=== PATIENT | male | born 1990 | race Caucasian/White ===

== ENCOUNTER 2017-04-30 12:44 | Emergency (ER) | payer BC, OTHER ==
[2017-04-30] MEDS ORDERED: MAG HYDROX/AL HYDROX/SIMETH 355 ML ORAL.SUSP PO ONE (13:00)
[2017-04-30] MEDS ORDERED: SODIUM CHLORIDE 2,000 ML IV STA (13:00)
[2017-04-30] MEDS ORDERED: LOPERAMIDE HCL 2 MG CAPSULE PO ONE (13:00)
[2017-04-30] MEDS ORDERED: FAMOTIDINE 20 MG/50 ML IVPB 50 ML IVPB ONE ×2 (13:00→13:09)
[2017-04-30] MEDS ORDERED: KETOROLAC TROMETHAMINE 30 MG/1 ML VIAL IVPUSH ONE (13:00)
[2017-04-30] MEDS ORDERED: ONDANSETRON 4 MG/2 ML VIAL IVPB ONE (13:00)
[2017-04-30 13:06] VITALS: BP 116/72; PULSE 79; TEMP 99.8; BMI 27.4
--- NOTE | 2017-04-30 13:07 | PDOC ---
History of Present Illness - General Chief Complaint: Nausea/Vomiting Stated Complaint: UPSET STOMACH Time Seen by Provider: 04/30/17 12:49 History Source: Patient Exam Limitations: No Limitations - History of Present Illness Initial Comments: 04/30/17 13:10 26 year old male with PMH of asthma presents with diarrhea x 4 days. The patient is unsure of any sick contacts. No recent travelling or bad foods. Started to develop several episodes of diarrhea daily. Reports some abdominal cramping but no vomiting. States had vomited once today. Reports chills but denies fevers. Came into the ED. Pt states that he was already recently treated with chlamydia. The patient states he has no symptoms but thinks may potentially not be completely treated. He is requesting a GC/CT and HIV test. Denies dysuria. Past History - Past Medical History Allergies/Adverse Reactions: Allergies Allergy/AdvReac Type Severity Reaction Status Date / Time No Known Allergies Allergy Verified 12/15/14 14:23 Home Medications: Ambulatory Orders No Home Medications 0 dose .ROUTE UTDICT 03/02/13 Ondansetron HCl [Zofran] 4 mg PO Q8H PRN #15 tablet 04/30/17 - Immunization History Immunization Up to Date: Yes - Suicide/Smoking/Psychosocial Hx Smoking Status: Yes Smoking History: Current some day smoker Number of Cigarettes Smoked Daily: 0 'Breaking Loose' booklet given: 12/15/14 Hx Alcohol Use: Yes Substance Use Type: None Review of Systems - Review of Systems Able to Perform ROS?: Yes Comments:: 04/30/17 13:15 GENERAL/CONSTITUTIONAL: No fever, weakness. HEAD, EYES, EARS, NOSE AND THROAT: No change in vision. No ear pain or discharge. No sore throat. CARDIOVASCULAR: No chest pain or shortness of breath. RESPIRATORY: No cough, wheezing, or hemoptysis. GASTROINTESTINAL: No abdominal pain. + nausea, vomiting, diarrhea, decreased PO intolerance. GENITOURINARY: No dysuria, frequency, or change in urination. MUSCULOSKELETAL: No joint or muscle swelling or pain. No neck or back pain. SKIN: No rash NEUROLOGIC: No headache, vertigo, loss of consciousness, or change in strength/ sensation. ENDOCRINE: No increased thirst. No abnormal weight change. HEMATOLOGIC/LYMPHATIC: No anemia, easy bleeding, or history of blood clots. ALLERGIC/IMMUNOLOGIC: No hives or skin allergy. *Physical Exam - Physical Exam Comments: 04/30/17 13:16 GENERAL: Awake, alert, and fully oriented, in no acute distress. Dry mucous membranes HEAD: No signs of trauma EYES: PERRLA, EOMI, sclera anicteric, conjunctiva clear ENT: Auricles normal inspection, hearing grossly normal, nares patent, oropharynx clear without exudates. NECK: Normal ROM, supple, no lymphadenopathy, JVD, or masses LUNGS: Breath sounds equal, clear to auscultation bilaterally. No wheezes, and no crackles HEART: Regular rate and rhythm, normal S1 and S2, no murmurs, rubs or gallops ABDOMEN: Soft, nontender, normoactive bowel sounds. No guarding, no rebound. No masses EXTREMITIES: Normal range of motion, no edema. No clubbing or cyanosis. No cords, erythema, or tenderness NEUROLOGICAL: Cranial nerves II through XII grossly intact. Normal speech, normal gait SKIN: Warm, Dry, normal turgor, no rashes or lesions noted. ED Treatment Course - LABORATORY CBC & Chemistry Diagram: 04/30/17 01:20 04/30/17 01:20 Medical Decision Making - Medical Decision Making 04/30/17 13:07 Vital Signs Temp Pulse Resp BP Pulse Ox 99.8 F H 79 15 116/72 97 04/30/17 12:45 04/30/17 12:45 04/30/17 12:45 04/30/17 12:45 04/30/17 12:45 Likely viral gastroenteritis. Labs, IVF, treat symptoms. Reassess. 04/30/17 15:04 CBC, BMP 04/30/17 01:20 04/30/17 01:20 CMP Sodium 133 mmol/L (136-145) L 04/30/17 01:20 Potassium 3.8 mmol/L (3.5-5.1) 04/30/17 01:20 Chloride 101 mmol/L (98-107) 04/30/17 01:20 Carbon Dioxide 27 mmol/L (22-28) 04/30/17 01:20 Anion Gap 5 (8-16) L 04/30/17 01:20 BUN 8 mg/dl (7-18) 04/30/17 01:20 Creatinine 0.7 mg/dl (0.6-1.3) 04/30/17 01:20 Creat Clearance w eGFR > 60 (>60) 04/30/17 01:20 Random Glucose 95 mg/dl (74-106) 04/30/17 01:20 Calcium 8.9 mg/dl (8.4-10.2) 04/30/17 01:20 Magnesium 2.0 mg/dL (1.8-2.4) 04/30/17 01:20 Total Bilirubin 0.7 mg/dl (0.2-1.0) 04/30/17 01:20 AST 22 U/L (10-42) 04/30/17 01:20 ALT 18 U/L (10-40) 04/30/17 01:20 Alkaline Phosphatase 46 U/L (32-92) 04/30/17 01:20 Total Protein 7.3 g/dl (6.4-8.3) 04/30/17 01:20 Albumin 4.3 g/dl (3.5-5.0) 04/30/17 01:20 Lipase 61 U/L (22-51) H 04/30/17 01:20 Urine Test Results Urine Color Yellow 04/30/17 14:44 Urine Appearance Clear 04/30/17 14:44 Urine pH 6.5 (4.5-8) 04/30/17 14:44 Ur Specific [place] 1.010 (1.005-1.025) 04/30/17 14:44 Urine Protein Negative (NEGATIVE) 04/30/17 14:44 Urine Glucose (UA) Negative (NEGATIVE) 04/30/17 14:44 Urine Ketones Trace (NEGATIVE) 04/30/17 14:44 Urine Blood Trace-lysed (NEGATIVE) H 04/30/17 14:44 Urine Nitrite Negative (NEGATIVE) 04/30/17 14:44 Urine Bilirubin Negative (NEGATIVE) 04/30/17 14:44 Urine RBC 0-3 /hpf (0-3) 04/30/17 14:44 Urine WBC 0-3 (3-5) 04/30/17 14:44 Ur Epithelial Cells Few /HPF 04/30/17 14:44 Urine Bacteria Few /hpf (NEGATIVE) 04/30/17 14:44 HIV and GC/CT pending. Will have patient call back for the results. He reports that he feels significantly better after the meds. I suspect that this is viral gastroenteritis. Father feels comfortable bring the patient home. I discussed the physical exam findings, ancillary test results and final diagnoses with the patient. I answered all of the patient's questions. The patient was satisfied with the care received and felt comfortable with the discharge plan and treatment plan. The patient will call their primary care physician within 24 hours to arrange follow-up and will return to the Emergency Department with any new, persistant or worsening symptoms. *DC/Admit/Observation/Transfer Diagnosis at time of Disposition: Gastroenteritis - Discharge Dispostion Disposition: HOME Condition at time of disposition: Good Admit: No - Prescriptions Prescriptions: Ondansetron HCl [Zofran] 4 mg PO Q8H PRN #15 tablet PRN Reason: Nausea - Referrals Referrals: Kale Araujo v [Primary Care Provider] - - Patient Instructions Printed Discharge Instructions: DI for Viral Gastroenteritis -- Adult Additional Instructions: Take Alleve (naproxen) 440 mg every 12 hours as needed for pain/fever. Take 30 mL of maalox every 6 hours as needed for abdominal pain/discomfort. Take 4 mg zofran every 8 hours as needed for nausea. Take 20 mg pepcid every 12 hours as needed for acid reflux. It may take another 2 to 3 days before your symptoms improve. Drink plenty of fluids and rest. Follow up with your doctor. - Post Discharge Activity Forms/Work/School Notes: Back to Work
[2017-04-30] MEDS ORDERED: MAG HYDROX/AL HYDROX/SIMETH 30 ML UNIT-DOSE CUP ONE (13:09)
[2017-04-30] MEDS ORDERED: KETOROLAC TROMETHAMINE 30 MG/1 ML VIAL ONE (13:09)
[2017-04-30] MEDS ORDERED: LOPERAMIDE HCL 2 MG CAPSULE ONE (13:09)
[2017-04-30] MEDS ORDERED: ONDANSETRON 4 MG/2 ML VIAL ONE (13:10)
[2017-04-30 13:36] LABS: BASOPHIL 1.6 % (0-2.0); EOSINOPHIL 0.4 % (0-4.5); MCH 28.9 pg (25.7-33.7); MCHC 33.7 g/dl (32.0-35.9); MEAN CELL VOLUME 85.9 fl (80-96); MEAN PLT VOLUME 7.6 fl (7.5-11.1); NEUTROPHILS 64.9 % (42.8-82.8); PLATELET COUNT 266 K/MM3 (134-434); RDW 12.1 % (11.9-15.9); WHITE BLOOD COUNT 6.4 K/mm3 (4.0-10.8)
[2017-04-30 14:00] LABS: ALBUMIN 4.3 g/dl (3.5-5.0); ALK PHOS 46 U/L (32-92); ANION GAP 5 (8-16); BILIRUBIN,TOTAL 0.7 mg/dl (0.2-1.0); CALCIUM 8.9 mg/dl (8.4-10.2); CO2 27 mmol/L (22-28); CREATININE 0.7 mg/dl (0.6-1.3); GLUCOSE,RANDOM 95 mg/dl (74-106); SGOT/AST 22 U/L (10-42); SGPT/ALT 18 U/L (10-40); TOT PROT 7.3 g/dl (6.4-8.3)
[2017-04-30] MEDS ORDERED: SODIUM CHLORIDE 1,000 ML IV STA (14:27)
[2017-04-30 14:53] LABS: PH,URINE 6.5 (4.5-8); URINE APPEARANCE Clear; URINE BILIRUBIN Negative (NEGATIVE); URINE GLUCOSE (UA) Negative (NEGATIVE); URINE KETONE Trace (NEGATIVE); URINE LEUK ESTERASE Negative (NEGATIVE); URINE NITRITE Negative (NEGATIVE); URINE PROTEIN Negative (NEGATIVE); URINE UROBILINOGEN 0.2 (0.2-1.0)
[2017-04-30 14:54] LABS: URINE BACTERIA FEW /hpf (NEGATIVE); URINE BLOOD Trace-lysed (NEGATIVE); URINE COLOR YELLOW; URINE RBC 0-3 /hpf (0-3); URINE WBC 0-3 (3-5)
[2017-04-30 18:56] LABS: HIV 1 & 2 AB NEGATIVE; HIV 1 AGp24 NEGATIVE
== END 2017-04-30 15:17 | disposition home or self-care (01) ==
LOC: FER 12:44
PROC: 3E033GC Introduction of Other Therapeutic Substance into Peripheral Vein, Percutaneous Approach (ICD-10-PCS; principal; 2017-04-30)
PROC: 3E0333Z Introduction of Anti-inflammatory into Peripheral Vein, Percutaneous Approach (ICD-10-PCS; 2017-04-30)
PROC: 3E033GC Introduction of Other Therapeutic Substance into Peripheral Vein, Percutaneous Approach (ICD-10-PCS; 2017-04-30)
PROC: 3E0337Z Introduction of Electrolytic and Water Balance Substance into Peripheral Vein, Percutaneous Approach (ICD-10-PCS; 2017-04-30)
DX: K52.9 Noninfective gastroenteritis and colitis, unspecified (principal); F17.210 Nicotine dependence, cigarettes, uncomplicated
CPT/HCPCS: 36415; 80053; 81003; 81015; 83690; 83735; 85025; 87086; 87389; 87491; 87591; 99283-25

== ENCOUNTER 2018-04-10 09:10 | Emergency (ER) | payer BC ==
[2018-04-10 09:21] VITALS: BP 125/63; PULSE 65; TEMP 98.6; BMI 25.8
[2018-04-10] MEDS ORDERED: IBUPROFEN 600 MG TABLET (FP) PO ONE ×2 (09:32→09:33)
--- NOTE | 2018-04-10 09:41 | PDOC ---
History of Present Illness - General Chief Complaint: Chest Pain Stated Complaint: CHEST PAIN, "SORE" Time Seen by Provider: 04/10/18 09:19 - History of Present Illness Initial Comments: 04/10/18 09:40 27 yo M with h/o asthma, and anxiety who p/w chest pain. Patient reports acute onset of left sided, infra mammary, chest tightness, lasting for 15 minutes, and resolving spontaneously. Patient states that he was sitting on train [place] approximately 0900 AM this morning, and experienced chest pain suddenly. States that he attempted to hyperextend his arm to stretch chest muscle to alleviate pain, but was unsuccessful. Patient has experienced in past, but never this long lasting. Also endorses increased "bloating", and "gas." Currently denies pain. Patient denies N/V, F,C, palpitations, diaphoresis, orthopnea, PND, leg swelling , pain, SOB, cough, wheezing, urinary complaints, abdominal pain, diarrhea, constipation, BPR, lightheadedness, weakness, sensory changes, tremors. PMHx: as noted above. Denies h/o ACS/UT. Denies h/o GI follow up, endoscopy, colonoscopy, or chronic NSAID use. No medication use. Daily caffeine intake 2-3 cups/coffee per day. Surgical: None ROS: as noted SHx: Etoh on weekends, 1-2 cigarettes per week. Denies IVDA. Allergies: NKDA FHx: No h/o sudden cardiac . Past History - Past Medical History Allergies/Adverse Reactions: Allergies Allergy/AdvReac Type Severity Reaction Status Date / Time No Known Allergies Allergy Verified 04/10/18 09:15 Home Medications: Ambulatory Orders Albuterol Sulfate Inhaler - [Ventolin HFA Inhaler -] 1 puff IH Q4H PRN #1 inhaler 04/10/18 Fluticasone Prop 0.05% Nasal [Flonase -] 1 spray NS DAILY #1 bot 04/10/18 Asthma: Yes COPD: No - Immunization History Immunization Up to Date: Yes - Suicide/Smoking/Psychosocial Hx Smoking Status: Yes Smoking History: Current some day smoker Have you smoked in the past 12 months: Yes Number of Cigarettes Smoked Daily: 1 Information on smoking cessation initiated: Yes 'Breaking Loose' booklet given: 04/10/18 Hx Alcohol Use: No (weekends) Drug/Substance Use Hx: No Substance Use Type: None Review of Systems - Review of Systems Comments:: 04/10/18 09:40 GENERAL/CONSTITUTIONAL: No fever or chills. No weakness. HEAD, EYES, EARS, NOSE AND THROAT: No change in vision. No ear pain or discharge. No sore throat. CARDIOVASCULAR: + chest pain. No shortness of breath RESPIRATORY: No cough, wheezing, or hemoptysis. GASTROINTESTINAL: No nausea, vomiting, diarrhea or constipation. GENITOURINARY: No dysuria, frequency, or change in urination. MUSCULOSKELETAL: No joint or muscle swelling or pain. No neck or back pain. SKIN: No rash NEUROLOGIC: No headache, vertigo, loss of consciousness, or change in strength/ sensation. ENDOCRINE: No increased thirst. No abnormal weight change HEMATOLOGIC/LYMPHATIC: No anemia, easy bleeding, or history of blood clots. ALLERGIC/IMMUNOLOGIC: No hives or skin allergy. *Physical Exam - Vital Signs Last Vital Signs Temp Pulse Resp BP Pulse Ox 98.6 F 65 18 125/63 100 04/10/18 09:10 04/10/18 09:10 04/10/18 09:10 04/10/18 09:10 04/10/18 09:10 - Physical Exam Comments: 04/10/18 09:40 GENERAL: Awake, alert, and fully oriented, in no acute distress HEAD: No signs of trauma, normocephalic, atraumatic EYES: PERRLA, EOMI, sclera anicteric, conjunctiva clear ENT: Hearing grossly normal, nares patent, oropharynx clear without exudates. Moist mucosa NECK: Normal ROM, supple, no lymphadenopathy, JVD, or masses LUNGS: No distress, speaks full sentences, clear to auscultation bilaterally HEART: Regular rate and rhythm, normal S1 and S2, no murmurs, rubs or gallops, peripheral pulses normal and equal bilaterally. ABDOMEN:+ slight epigastric ttp. Soft, NBS. No guarding, no rebound, no rigidity. No masses,. Neg CVA ttp. EXTREMITIES : Normal inspection, Normal range of motion, no edema. No clubbing or cyanosis. SKIN: Warm, Dry, normal turgor, no rashes or lesions noted ED Treatment Course - LABORATORY CBC & Chemistry Diagram: 04/10/18 10:00 04/10/18 10:00 - Medications Given in the ED: ED Medications Discontinued Medications Generic Name Dose Route Start Last Admin Trade Name Barby PRN Reason Stop Dose Admin Ibuprofen 600 mg 04/10/18 09:32 04/10/18 09:35 Motrin - PO 04/10/18 09:33 600 mg ONCE ONE Administration Medical Decision Making - Medical Decision Making 04/10/18 09:54 27 yo M with h/o asthma, and anxiety who p/w chest pain. VSS, AF. ACS/UT r/o. Low suspicion ACS. PERC NEG PE. Pain likely 2/2 dyspepsia d/t esophagitis, or GERD. Will also consider anxiety related disorder, and costochondritis. Low suspicion asthma, COPD, PNA. No respiratory complaints, or symptoms. Ed Course: EKG, CXR [facility] 04/10/18 11:02 CBC,CMP: Unremarkable Trop: Neg CXR: Unremarkable Patient stable for d/c with return precautions. Advised to f/u with PMD. *DC/Admit/Observation/Transfer Diagnosis at time of Disposition: Allergic rhinitis, Chest wall pain, Dyspepsia - Discharge Dispostion Disposition: HOME Condition at time of disposition: Improved Decision to Admit order: No - Prescriptions Prescriptions: Albuterol Sulfate Inhaler - [Ventolin HFA Inhaler -] 1 puff IH Q4H PRN #1 inhaler PRN Reason: Wheezing Fluticasone Prop 0.05% Nasal [Flonase -] 1 spray NS DAILY #1 bot - Referrals Referrals: Beni Cline MD [Staff Physician] - - Patient Instructions Printed Discharge Instructions: Sinusitis, DI for Atypical Chest Pain, DI for Dyspepsia Additional Instructions: Please return to the emergency department with any new or worsening symptoms or concerns. Please follow up with your primary care physician within 72 hours.Please follow up with gastroenterology within one week. - Post Discharge Activity - Attestations Physician Attestion: 04/10/18 09:41 I attest to the information provided in this note.
--- NOTE | 2018-04-10 09:44 | PDOC ---
History of Present Illness - General Chief Complaint: Chest Pain Stated Complaint: CHEST PAIN, "SORE" Time Seen by Provider: 04/10/18 09:19 History Source: Patient Exam Limitations: No Limitations - History of Present Illness Initial Comments: 04/10/18 09:39 27-year-old male history of asthma and ALLERGIES here today complaining of left- sided chest pain. Patient states he has had a recent cough has also been noticing a lot of phlegm worse at nighttime states he is staying in the basement with a cat and believes that may be activating his asthma today he was in the train had an episode of left-sided chest pain felt that was in the chest wall near the muscles he then became anxious denies any palpitationsand shortness of breath no leg swelling no history of PE or DVT does have a history of anxiety since the pain has resolved no fevers no chills no other current complaints Past History - Past Medical History Allergies/Adverse Reactions: Allergies Allergy/AdvReac Type Severity Reaction Status Date / Time No Known Allergies Allergy Verified 04/10/18 09:15 Home Medications: Ambulatory Orders Albuterol Sulfate Inhaler - [Ventolin HFA Inhaler -] 1 puff IH Q4H PRN #1 inhaler 04/10/18 Fluticasone Prop 0.05% Nasal [Flonase -] 1 spray NS DAILY #1 bot 04/10/18 Asthma: Yes COPD: No - Immunization History Immunization Up to Date: Yes - Suicide/Smoking/Psychosocial Hx Smoking Status: Yes Smoking History: Current some day smoker Have you smoked in the past 12 months: Yes Number of Cigarettes Smoked Daily: 1 Information on smoking cessation initiated: Yes 'Breaking Loose' booklet given: 04/10/18 Hx Alcohol Use: No (weekends) Drug/Substance Use Hx: No Substance Use Type: None Review of Systems - Review of Systems Constitutional: No: Chills, Diaphoresis Respiratory: Yes: Cough, Wheezing. No: Orthopnea, Shortness of Breath Cardiac (ROS): Yes: Chest Pain. No: Irregular Heart Rate : No: Burning, Dysuria Endocrine: No: Excessive Sweating Hematologic/Lymphatic: No: Anemia, Blood Clots, Easy Bleeding All Other Systems: Reviewed and Negative *Physical Exam - Vital Signs Last Vital Signs Temp Pulse Resp BP Pulse Ox 98.6 F 65 18 125/63 100 04/10/18 09:10 09/04/18 09:10 04/10/18 09:10 04/10/18 09:10 04/10/18 09:10 - Physical Exam General Appearance: Yes: Appropriately Dressed HEENT: positive: Pharynx Normal, Other (bilateral turbenate largement clear mucosa) Respiratory/Chest: positive: Lungs Clear, Normal Breath Sounds Cardiovascular: positive: Regular Rhythm, Regular Rate, S1, S2 Gastrointestinal/Abdominal: positive: Normal Bowel Sounds, Flat, Soft Extremity: positive: Normal Capillary Refill. negative: Normal Inspection Integumentary: positive: Normal Color, Dry, Warm Neurologic: positive: Fully Oriented, Alert, Normal Mood/Affect Heart Score/ECG Review #1 General ECG Interpretation: Sinus Rhythm, Normal Rate (64), Normal Intervals, No acute ischemic changes ED Treatment Course - RADIOLOGY Radiology Studies Ordered: Category Date Time Status CHEST PA & LAT [RAD] Stat Radiology 04/10/18 09:32 Ordered - Medications Given in the ED: ED Medications Discontinued Medications Generic Name Dose Route Start Last Admin Trade Name Freq PRN Reason Stop Dose Admin Ibuprofen 600 mg 04/10/18 09:32 04/10/18 09:35 Motrin - PO 04/10/18 09:33 600 mg ONCE ONE Administration Medical Decision Making - Medical Decision Making 04/10/18 09:44 27-year-old history of asthma here with cough ALLERGIC rhinitis like symptoms and chest pain. Plan EKG chest x-ray to rule out any underlying infection. Symptoms are suggestive of musculoskeletal chest pain denies any drug use patient also has symptoms suggestive of ALLERGIC rhinitis sinusitis. We'll recommend Flonase will refill the patient's albuterol pump to use as needed and chest x-ray told to follow up with PCP *DC/Admit/Observation/Transfer Diagnosis at time of Disposition: Allergic rhinitis, Chest wall pain - Discharge Dispostion Disposition: HOME Condition at time of disposition: Improved - Prescriptions Prescriptions: Albuterol Sulfate Inhaler - [Ventolin HFA Inhaler -] 1 puff IH Q4H PRN #1 inhaler PRN Reason: Wheezing Fluticasone Prop 0.05% Nasal [Flonase -] 1 spray NS DAILY #1 bot - Referrals - Patient Instructions Printed Discharge Instructions: DI for Atypical Chest Pain, Sinusitis Additional Instructions: use albuterol inhaler 2 puffs every 4 hours as needed for wheezing or cough. Use Flonase nasal spray 1 spray each nostril daily to help with ALLERGIC rhinitis and postnasal drip. Follow-up with your primary care doctor you can take ibuprofen 600 mg every 8 hours as needed for pain and return for any shortness of breath fever chills or any concerns - Post Discharge Activity
[2018-04-10 10:27] LABS: BASO % 0.6 % (0-2.0); EOS % 2.7 % (0-4.5); HEMATOCRIT 46.4 % (35.4-49); HEMOGLOBIN 15.3 GM/dl (11.7-16.9); LYMPH % 27.9 % (8-40); MCH 28.9 pg (25.7-33.7); MEAN CELL VOLUME 87.7 fl (80-96); MEAN PLT VOLUME 7.4 fl (7.5-11.1); MONO % 9.4 % (3.8-10.2); NEUT % 59.4 % (42.8-82.8); PLATELET COUNT 361 K/MM3 (134-434); RBC 5.29 M/mm3 (4.00-5.60); RDW 12.1 % (11.9-15.9); WHITE BLOOD COUNT 8.6 K/mm3 (4.0-10.8)
--- NOTE | 2018-04-10 10:52 | PDOC ---
Attending Attestation - Resident Resident Name: Omari Vigil - ED Attending Attestation I have performed the following: I have examined & evaluated the patient, The case was reviewed & discussed with the resident, I agree w/resident's findings & plan, Exceptions are as noted - HPI HPI: 04/10/18 10:52 27-year-old male history of asthma and ALLERGIES here today complaining of left- sided chest pain. Patient states he has had a recent cough has also been noticing a lot of phlegm worse at nighttime states he is staying in the basement with a cat and believes that may be activating his asthma today he was in the train had an episode of left-sided chest pain felt that was in the chest wall near the muscles he then became anxious denies any palpitationsand shortness of breath no leg swelling no history of PE or DVT does have a history of anxiety since the pain has resolved no fevers no chills no other current complaints - Physicial Exam PE: 04/10/18 10:53 General Appearance: Yes: Appropriately Dressed HEENT: positive: Pharynx Normal, Other (bilateral turbenate largement clear mucosa) Respiratory/Chest: positive: Lungs Clear, Normal Breath Sounds Cardiovascular: positive: Regular Rhythm, Regular Rate, S1, S2 Gastrointestinal/Abdominal: positive: Normal Bowel Sounds, Flat, Soft Extremity: positive: Normal Capillary Refill. negative: Normal Inspection Integumentary: positive: Normal Color, Dry, Warm Neurologic: positive: Fully Oriented, Alert, Normal Mood/Affect - Medical Decision Making 04/10/18 10:52 27-year-old history of asthma here with cough ALLERGIC rhinitis like symptoms and chest pain. Plan EKG chest x-ray to rule out any underlying infection. Symptoms are suggestive of musculo skeletal chest pain denies any drug use patient also has symptoms suggestive of ALLERGIC rhinitis sinusitis. We'll recommend Flonase will refill the patient's albuterol pump to use as needed and chest x-ray told to follow up with PCP 04/10/18 11:20 labs cxr and ekg all unremarkable. reveiwed results with pt and family. dc home with pcp followup Heart Score/ECG Review #1 General ECG Interpretation: Sinus Rhythm, Normal Rate (64), Normal Intervals, No acute ischemic changes
[2018-04-10 11:00] LABS: ALBUMIN 4.3 g/dl (3.5-5.0); ALK PHOS 51 U/L (32-92); ANION GAP 8 MMOL/L (8-16); BILIRUBIN,TOTAL 0.8 mg/dl (0.2-1.0); BLOOD UREA NITROGEN 14 mg/dl (7-18); CALCIUM 8.7 mg/dl (8.4-10.2); CHLORIDE 101 mmol/L (98-107); CO2 24 mmol/L (22-28); CREATININE 0.9 mg/dl (0.6-1.3); GLUCOSE,RANDOM 101 mg/dl (74-106); POTASSIUM 4.1 mmol/L (3.5-5.1); SGOT/AST 19 U/L (10-42); SGPT/ALT 19 U/L (10-40); SODIUM 133 mmol/L (136-145); TOT PROT 7.4 g/dl (6.4-8.3)
--- NOTE | 2018-04-11 12:33 | EKG ---
Test Reason : Blood Pressure : / mmHG Vent. Rate : 064 BPM Atrial Rate : 064 BPM P-R Int : 148 ms QRS Dur : 094 ms QT Int : 414 ms P-R-T Axes : 054 054 021 degrees QTc Int : 427 ms NORMAL SINUS RHYTHM NORMAL ECG NO PREVIOUS ECGS AVAILABLE Confirmed by ALAN FORD, BEN ([id number]) on 04/11/2018 12:32:58 PM Referred By: QUINCY PIEDRA Confirmed By:BEN PHILLIPS MD
== END 2018-04-10 11:20 | disposition home or self-care (01) ==
LOC: FER 09:10
DX: R07.89 Other chest pain (principal); R10.13 Epigastric pain; J30.9 Allergic rhinitis, unspecified; F17.210 Nicotine dependence, cigarettes, uncomplicated
CPT/HCPCS: 36415; 71046-TC-FY; 80053; 82550; 82553; 83690; 84484; 85025; 93005; 99284-25

== ENCOUNTER 2018-05-28 09:17 | Emergency (ER) | payer BC ==
[2018-05-28 09:31] VITALS: BP 130/78; PULSE 58; TEMP 98.1; BMI 27.3
--- NOTE | 2018-05-28 09:40 | PDOC ---
History of Present Illness - General Chief Complaint: Headache Stated Complaint: HEADACHE Time Seen by Provider: 05/28/18 09:19 History Source: Patient Exam Limitations: No Limitations - History of Present Illness Initial Comments: 27 yo M history asthma presents with persistently worsening headaches for the past 5-6 days. He states he frequently gets headaches, but typically they improve with tylenol and do not return. For the past few days he has been having intermittent headaches that typically start in the afternoon. Associated with fatigue, but no focal weakness. +Tingling in R hand that has been improving. Headaches resolve with tylenol then return later. +Pain to posterior neck. No N/V. Past History - Past Medical History Allergies/Adverse Reactions: Allergies Allergy/AdvReac Type Severity Reaction Status Date / Time No Known Allergies Allergy Verified 05/28/18 09:19 Home Medications: Ambulatory Orders Albuterol Sulfate Inhaler - [Ventolin HFA Inhaler -] 1 puff IH Q4H PRN #1 inhaler 04/10/18 Fluticasone Prop 0.05% Nasal [Flonase -] 1 spray NS DAILY #1 bot 04/10/18 Acetaminophen 650 mg PO ONCE 05/28/18 Asthma: Yes COPD: No - Immunization History Immunization Up to Date: Yes - Suicide/Smoking/Psychosocial Hx Smoking Status: Yes Smoking History: Current some day smoker Have you smoked in the past 12 months: Yes Number of Cigarettes Smoked Daily: 1 Information on smoking cessation initiated: Yes 'Breaking Loose' booklet given: 04/10/18 Hx Alcohol Use: Yes Drug/Substance Use Hx: No Substance Use Type: None Review of Systems - Review of Systems Able to Perform ROS?: Yes Comments:: GENERAL/CONSTITUTIONAL: No fever or chills. No weakness. HEAD, EYES, EARS, NOSE AND THROAT: No change in vision. No ear pain or discharge. No sore throat. CARDIOVASCULAR: No chest pain or shortness of breath. RESPIRATORY: No cough, wheezing, or hemoptysis. GASTROINTESTINAL: No nausea, vomiting, diarrhea or constipation. GENITOURINARY: No dysuria, frequency, or change in urination. MUSCULOSKELETAL: No joint or muscle swelling or pain. No neck or back pain. SKIN: No rash NEUROLOGIC: +Headache. No vertigo, loss of consciousness, or change in strength/ sensation. ENDOCRINE: No increased thirst. No abnormal weight change. HEMATOLOGIC/LYMPHATIC: No anemia, easy bleeding, or history of blood clots. ALLERGIC/IMMUNOLOGIC: No hives or skin allergy. *Physical Exam - Vital Signs Last Vital Signs Temp Pulse Resp BP Pulse Ox 98.1 F 58 L 16 130/78 99 05/28/18 09:18 05/28/18 09:18 05/28/18 09:18 05/28/18 09:18 05/28/18 09:18 - Physical Exam Comments: GENERAL: Awake, alert, and fully oriented, in no acute distress HEAD: No signs of trauma EYES: PERRLA, EOMI, sclera anicteric, conjunctiva clear ENT: Auricles normal inspection, hearing grossly normal, nares patent, oropharynx clear without exudates. Moist mucosa. TMs wnl B/L. NECK: Normal ROM, supple, no lymphadenopathy, JVD, or masses LUNGS: Breath sounds equal, clear to auscultation bilaterally. No wheezes, and no crackles HEART: Regular rate and rhythm, normal S1 and S2, no murmurs, rubs or gallops ABDOMEN: Soft, nontender, normoactive bowel sounds. No guarding, no rebound. No masses EXTREMITIES: Normal range of motion, no edema. No clubbing or cyanosis. No cords, erythema, or tenderness NEUROLOGICAL: Cranial nerves II through XII grossly intact. Normal speech, normal gait. Motor and sensation intact B/L. SKIN: Warm, Dry, normal turgor, no rashes or lesions noted. Medical Decision Making - Medical Decision Making 05/28/18 09:44 Will obtain CTH as his headache pattern has changed. Low suspicion for ICH. 05/28/18 10:42 CTH reviewed. No acute findings. Stable for DC home. *DC/Admit/Observation/Transfer Diagnosis at time of Disposition: Headache Qualifiers: Headache type: unspecified Headache chronicity pattern: episodic headache Intractability: not intractable Qualified Code(s): R51 - Headache - Discharge Dispostion Disposition: HOME Condition at time of disposition: Stable Decision to Admit order: No - Referrals Referrals: Kale Araujo v [Primary Care Provider] - - Patient Instructions Printed Discharge Instructions: DI for Headache - Post Discharge Activity
== END 2018-05-28 10:54 | disposition home or self-care (01) ==
LOC: FER 09:17
DX: R51 Headache (principal); F17.210 Nicotine dependence, cigarettes, uncomplicated
CPT/HCPCS: 70450-TC; 99281-25

== ENCOUNTER 2019-01-08 10:02 | Emergency (ER) | payer SELFPAY, BC | END 2019-01-08 13:39 | disposition home or self-care (01) | LOC: FER 10:02 ==

== ENCOUNTER 2021-09-12 12:53 | Emergency (ER) | payer OTHER ==
[2021-09-12 13:01] VITALS: BP 128/62; PULSE 76; TEMP 98.1; BMI 27.3
[2021-09-12] MEDS ORDERED: SODIUM CHLORIDE 0.9% 1000 ML INFUS.BAG IV ONE (13:29)
[2021-09-12] MEDS ORDERED: DIPHTH,PERTUSS(ACELL),TET 0.5 ML DISP.SYRIN IM ONE ×2 (13:29→13:31)
[2021-09-12] MEDS ORDERED: ACETAMINOPHEN 1000 MG/100 ML BAG IVPB ONE (13:30)
[2021-09-12] MEDS ORDERED: ACETAMINOPHEN INJECTION 100 ML IVPB ONE (13:32)
[2021-09-12 14:09] LABS: ALBUMIN 4.1 g/dl (3.4-5.0); BILIRUBIN,TOTAL 0.9 mg/dl (0.2-1); CALCIUM 8.8 mg/dl (8.5-10); CREATININE 0.8 mg/dl (0.55-1.3); TOT PROT 7.3 g/dl (6.4-8.2)
[2021-09-12 14:11] LABS: BASO % 0.4 % (0-2.0); EOS % 0.2 % (0-4.5); HEMOGLOBIN 13.8 GM/dL (11.7-16.9); LYMPH % 13.6 % (8-40); MCH 27.1 pg (25.7-33.7); MCHC 32.9 g/dl (32.0-35.9); MEAN CELL VOLUME 82.2 fl (80-96); MEAN PLT VOLUME 6.9 fl (7.5-11.1); MONO % 7.7 % (3.8-10.2); NEUT % 78.1 % (42.8-82.8); PLATELET COUNT 444 10^3/uL (134-434); RBC 5.11 M/mm3 (4.00-5.60); RDW 14.8 % (11.9-15.9); WHITE BLOOD COUNT 12.2 K/mm3 (4.0-10.0)
== END 2021-09-12 16:36 | disposition home or self-care (01) ==
LOC: FER 12:53
PROC: 3E033GC Introduction of Other Therapeutic Substance into Peripheral Vein, Percutaneous Approach (ICD-10-PCS; principal; 2021-09-12)
PROC: 3E0234Z Introduction of Serum, Toxoid and Vaccine into Muscle, Percutaneous Approach (ICD-10-PCS; 2021-09-12)
DX: S01.111A Laceration without foreign body of right eyelid and periocular area, initial encounter (principal); T14.90XA Injury, unspecified, initial encounter; W10.8XXA Fall (on) (from) other stairs and steps, initial encounter
CPT/HCPCS: 36415; 70450-TC; 70486-TC; 70491-TC; 73130-TC-LT-FY; 73130-TC-RT-FY; 80053; 85025; 90715; 99285-25; J0131; Q9967